=== PATIENT | female | born 1990 | race American Indian/Alaskan Native ===

== ENCOUNTER 2022-04-13 19:17 | Emergency (ER) | payer MEDICAID ==
[2022-04-13] MEDS ORDERED: SODIUM CHLORIDE 0.9% 500 ML 500 ML IV ONE (19:33)
[2022-04-13] MEDS ORDERED: ACETAMINOPHEN 500 MG TAB PO ONE (19:39)
[2022-04-13 20:02] LABS: Basophils # (Auto) 0.1 K/mm3 (0.0-0.1); Basophils % (Auto) 0.6 % (0.0-1.8); Eosinophils # (Auto) 0.1 K/mm3 (0.0-0.4); Eosinophils % (Auto) 1.6 % (0.0-4.3); Hematocrit 22.1 % (30.3-42.9); Hemoglobin 7.6 gm/dl (10.1-14.3); Lymphocytes # (Auto) 1.9 K/mm3 (1.2-5.4); Lymphocytes % (Auto) 21.1 % (13.4-35.0); Mean Corpuscular HGB Conc 35 % (30-34); Mean Corpuscular Volume 87 fl (79-97); Monocytes # (Auto) 0.5 K/mm3 (0.0-0.8); Monocytes % (Auto) 5.4 % (0.0-7.3); Platelet Count 297 K/mm3 (140-440); Red Blood Count 2.53 M/mm3 (3.65-5.03); Red Cell Distribution Width 16.1 % (13.2-15.2)
[2022-04-13 20:14] LABS: INR 0.92 (0.87-1.13)
[2022-04-13 20:18] LABS: Alanine Aminotransferase 48 units/L (7-56); Albumin 3.7 g/dL (3.9-5); BUN/Creatinine Ratio 13; Blood Urea Nitrogen 12 mg/dL (7-17); Calcium 8.8 mg/dL (8.4-10.2); Hemolysis Index 0
--- NOTE | 2022-04-13 20:53 | XRay Report ---
CHEST 1 VIEW INDICATION / CLINICAL INFORMATION: possible Sepsis STUDY TIME: 2002 COMPARISON: None available. FINDINGS: SUPPORT DEVICES: None HEART / MEDIASTINUM: No significant abnormality. LUNGS / PLEURA: No significant acute pulmonary or pleural abnormality. No pneumothorax. ADDITIONAL FINDINGS: No significant additional findings. Signer Name: Bandar Markham MD Signed: 04/13/2022 8:48 PM Workstation Name: [id number]
[2022-04-13 22:56] LABS: Color,Urine Colorless (Yellow)
--- NOTE | 2022-04-13 23:20 | Emergency Department Report ---
ED Chest Pain HPI - General Chief Complaint: Chest Pain Stated Complaint: CHEST PAIN/6DAYS POST OP Time Seen by Provider: 04/13/22 22:46 Source: patient Mode of arrival: Ambulatory Limitations: No Limitations - History of Present Illness Initial Comments: 31 yo F with history of chronic anemia who present with chest pain associated with palpitation that started 6 days ago after her liposuction surgery with infusion to her bilateral thigh or hip at [place]. She says her heart rate was about 125 bpm and was told that it was normal because of the anesthesia effect. No fever or chills reported. No other modifying or associated factors reported. - Related Data Allergies Allergy/AdvReac Type Severity Reaction Status Date / Time No Known Allergies Allergy Verified 04/13/22 19:33 Heart Score - HEART Score History: Slightly suspicious EKG: Normal Age: < 45 Risk factors: No known risk factors Troponin: < normal limit HEART Score: 0 - EKG Read Time Time EKG Completed: 19:24 EKG Read Time: 19:31 - Critical Actions Critical Actions: 0-3 pts:0.9-1.7%risk of adverse cardiac event.Candidate for discharge ED Review of Systems ROS: Stated complaint: CHEST PAIN/6DAYS POST OP Other details as noted in HPI Comment: All other systems reviewed and negative Cardiovascular: chest pain, palpitations ED Physical Exam - General Limitations: No Limitations General appearance: alert, in no apparent distress - Head Head exam: Present: normal inspection - Eye Eye exam: Present: normal appearance Pupils: Present: normal accommodation - ENT ENT exam: Present: normal exam, normal orophraynx, mucous membranes dry - Neck Neck exam: Present: normal inspection, full ROM. Absent: tenderness - Respiratory Respiratory exam: Present: normal lung sounds bilaterally. Absent: respiratory distress, accessory muscle use - Cardiovascular Cardiovascular Exam: Present: normal rhythm, tachycardia, normal heart sounds - GI/Abdominal GI/Abdominal exam: Present: soft, normal bowel sounds. Absent: distended, tenderness - Extremities Exam Extremities exam: Present: tenderness (bilateral lateral thigh muscle ) - Back Exam Back exam: Absent: tenderness - Neurological Exam Neurological exam: Present: alert, oriented X3 - Psychiatric Psychiatric exam: Present: normal affect, normal mood - Skin Skin exam: Present: warm, normal color ED Course Vital Signs 04/13/22 04/13/22 04/13/22 19:23 20:26 23:00 Temperature 99.3 F Pulse Rate 155 H 133 H Respiratory 18 18 Rate Blood Pressure 151/72 O2 Sat by Pulse 100 98 100 Oximetry 04/14/22 04/14/22 04/14/22 00:30 00:50 01:00 Temperature Pulse Rate 119 H 113 H Respiratory 11 L 18 9 L Rate Blood Pressure 103/43 O2 Sat by Pulse 100 100 Oximetry 04/14/22 04/14/22 04/14/22 01:16 01:30 01:50 Temperature Pulse Rate 114 H 117 H Respiratory 22 19 18 Rate Blood Pressure 115/57 104/52 O2 Sat by Pulse 100 99 Oximetry WALTER score - Walter Score Age > 65: (0) No Aspirin use within the Past 7 Days: (0) No 3 or more CAD Risk Factors: (0) No 2 or more Angina events in past 24 hrs: (0) No Known CAD with more than 50% Stenosis: (0) No Elevated Cardiac Markers: (0) No ST Deviation Greater than 0.5mm: (0) No WALTER Score: 0 ED Medical Decision Making - Lab Data Result diagrams: 04/13/22 19:40 04/13/22 19:40 - EKG Data -: EKG Interpreted by [place] EKG shows normal: sinus rhythm Rate: tachycardia - EKG Data 04/13/22 23:21 Noted with normal sinus tachycardia at a rate of [address] elevation or depression in this otherwise normal ECG. - Radiology Data FINDINGS: VASCULAR FINDINGS: PULMONARY ARTERY: Pulmonary artery is normal in size. No filling defects are present compatible with pulmonary artery embolus.. THORACIC AORTA: No significant abnormality. CORONARY ARTERY CALCIFICATION: Absent -- None. NONVASCULAR FINDINGS: LOWER NECK: Soft tissues and musculature of the lower neck demonstrate no si gnificant abnormality. The thyroid demonstrates no significant abnormality. HEART: No significant abnormality. MEDIASTINUM / ALCIRA: No significant abnormality. ESOPHAGUS: No significant abnormality. LYMPH NODES: No adenopathy within the axilla, mediastinum, or alcira. LUNGS: No acute air space or interstitial disease. PLEURA: No pleural effusion. No pneumothorax. THORACIC SOFT TISSUES: No significant abnormality of the chest wall or upper thoracic musculature. BONES: No significant skeletal abnormalities. ADDITIONAL CHEST FINDINGS: None. UPPER ABDOMEN: Moderate body wall edema. IMPRESSION: 1. No CT evidence for pulmonary embolism. 2. No acute findings. - Medical Decision Making here with chest pain with tachycardia after lapsuction surgery -- which raised concern for pulmonary fat emboli -- will go ahead and check d-dimer and other routine labs for any infectious process or electrolytes abnormality-- this patient chronic anemia did not help idea-- so will monitor her H&H -- In the meantime will hydrate with ivf ns 1L bolus x 1-- while waiting for above-- Noted with low hemoglobin and hematocrit at 7.6/22.1 but this is now far from patient baseline as reported. Also noted with elevated D-dimer with chest pain and recent procedure this raise concern for fat emboli causing PE--so we will go ahead and get a CTA chest to further rule pulmonary embolus and out. CTA chest with no acute findings -- tachycardia improved with ivf hydration -- her anemia could have contributed to her tachycardia as well-- pt reassured and encourage to follow up with her surgeon-- Critical care attestation.: If time is entered above; I have spent that time in minutes in the direct care of this critically ill patient, excluding procedure time. ED Disposition Clinical Impression: Tachycardia Chest pain Qualifiers: Chest pain type: unspecified Qualified Code(s): R07.9 - Chest pain, unspecified Disposition: 01 HOME / SELF CARE / HOMELESS Is pt being admited?: No Does the pt Need Aspirin: No Condition: Stable Instructions: Nonspecific Chest Pain, Adult, [id number] Additional Instructions: Increase your daily fluid to help your hydration It is very important about you call and follow-up with your surgeon for further evaluation and treatment Please do not hesitate to call or return to emergency room if your symptoms worsen Referrals: TINO CHILDRESS MD [Primary Care Provider] - 3-5 Days Time of Disposition: 04:04
[2022-04-14] MEDS ORDERED: ACETAMINOPHEN 500 MG TAB PO ONE (00:15)
[2022-04-14] MEDS ORDERED: SODIUM CHLORIDE 0.9% 500 ML 500 ML IV ONE (00:17)
[2022-04-14 02:44] LABS: HCG Qualitative,Urine Negative (Negative)
--- NOTE | 2022-04-14 03:42 | Cat Scan Report ---
CTA CHEST WITH CONTRAST INDICATION / CLINICAL INFORMATION: elevated d-dimer with tachycardia. TECHNIQUE: Axial CT images were obtained through the chest after injection of IV contrast. 3 plane NC P and/or 3D reconstructions were produced. All CT scans at this location are performed using CT dose reduction for ALARA by means of automated exposure control. COMPARISON: None available. FINDINGS: VASCULAR FINDINGS: PULMONARY ARTERY: Pulmonary artery is normal in size. No filling defects are present compatible with pulmonary artery embolus.. THORACIC AORTA: No significant abnormality. CORONARY ARTERY CALCIFICATION: Absent -- None. NONVASCULAR FINDINGS: LOWER NECK: Soft tissues and musculature of the lower neck demonstrate no significant abnormality. Th e thyroid demonstrates no significant abnormality. HEART: No significant abnormality. MEDIASTINUM / BARTOLOME: No significant abnormality. ESOPHAGUS: No significant abnormality. LYMPH NODES: No adenopathy within the axilla, mediastinum, or bartolome. LUNGS: No acute air space or interstitial disease. PLEURA: No pleural effusion. No pneumothorax. THORACIC SOFT TISSUES: No significant abnormality of the chest wall or upper thoracic musculature. BONES: No significant skeletal abnormalities. ADDITIONAL CHEST FINDINGS: None. UPPER ABDOMEN: Moderate body wall edema. IMPRESSION: 1. No CT evidence for pulmonary embolism. 2. No acute findings. Signer Name: Percy Cruz II, MD Signed: 04/14/2022 3:38 AM Workstation Name: [id number]
[2022-04-14 04:36] VITALS: BP 111/44
--- NOTE | 2022-04-14 09:56 | Electrocardiograph Report ---
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
== END 2022-04-14 04:25 | disposition home or self-care (01) ==
LOC: ED 19:17
DX: R00.0 Tachycardia, unspecified (principal); R07.9 Chest pain, unspecified
CPT/HCPCS: 36415; 71045; 71275; 80053; 81001; 81025; 82140; 82805; 85025; 85379; 85610; 87040; 87086; 93005; 96360; 99284; J7040; Q9967